=== PATIENT | female | born 1945 | race Caucasian/White ===

== ENCOUNTER 2016-06-02 09:35 | Outpatient (CLI) | payer BC, OTHER | END 2016-06-02 17:56 | disposition home or self-care (01) | LOC: SMA 09:35 | PROVIDERS: ATTEND Specialist | DX: Z12.31 Encounter for screening mammogram for malignant neoplasm of breast (principal) | CPT/HCPCS: 77067; G0202 ==

== ENCOUNTER 2017-06-14 08:14 | Outpatient (CLI) | payer BC, OTHER | END 2017-06-14 18:40 | disposition home or self-care (01) | LOC: SMA 08:14 | DX: Z12.31 Encounter for screening mammogram for malignant neoplasm of breast (principal); R92.1 Mammographic calcification found on diagnostic imaging of breast | CPT/HCPCS: 77067 ==

== ENCOUNTER 2018-07-29 08:04 | Outpatient (CLI) | payer BC, OTHER | END 2018-07-29 21:11 | disposition home or self-care (01) | LOC: SMA 08:04 | PROVIDERS: ATTEND Specialist | DX: Z12.31 Encounter for screening mammogram for malignant neoplasm of breast (principal) | CPT/HCPCS: 77067 ==